=== PATIENT | male | born 1990 | race Caucasian/White ===

== ENCOUNTER 2024-08-08 11:39 | Emergency (ER) | payer OTHER, SELFPAY ==
[2024-08-08 11:41] VITALS: BP 143/82
[2024-08-08 12:41] VITALS: BMI 26.0
[2024-08-08 12:42] VITALS: BP 136/71
--- NOTE | 2024-08-08 12:56 | ED.GENMED ---
History of Present Illness
General
Chief Complaint: Flank Pain
Source: patient
Time Seen by Provider: 08/08/24 12:05
History of Present Illness
History of Present Illness:
Note:
CHIEF COMPLAINT(S)
Flank pain.
HISTORY OF PRESENT ILLNESS
The patient is a 34-year-old male presenting with left flank pain that began suddenly last night. The pain intensity was severe enough to hinder mobility and comfort in any position. The patient reported significant alleviation of pain after taking
ibuprofen around 11:30 AM today. At the time of evaluation, the patient describes the pain as currently resolved. There is an associated symptom of frequent urination, but no hematuria has been reported despite patient noting microscopic hematuria
on UA performed at prior to arrival. The patient denies any previous episodes of similar pain or urinary symptoms. Otherwise denies any fevers, chills, rigors, nausea, vomiting, bowel changes.
ADDITIONAL HISTORY OBTAINED FROM SOURCES OTHER THAN THE PATIENT
the patient underwent initial lab work at urgent care that showed normal kidney function and white blood cell count.
Past History
Past History
ED Past Medical History: Hypercholesterolemia
ED Past Surgical History: Other
Social History
Tobacco: Non-smoker
Alcohol: Occasional
Drug: None
Living: with family
Employment: Employed
Review of Systems
Review of Systems
All Other Systems: ROS reviewed and negative except as documented in HPI and ROS
Phy Exam
Physical Exam
Physical Exam:
GENERAL: Alert , in no apparent distress
EYE: clear conjunctiva b/l
HEAD: NCAT
ENT: o/p clr, mmm.
CARDIAC: Regular rate and rhythm .
LUNGS: Clear breath sounds bilaterally, no acute respiratory distress, no wheezes/rales/rhonchi
ABDOMEN: Soft, without focal tenderness, no r/g, no cvat
NEUROLOGICAL: Alert and oriented
SKIN: Warm and dry, skin intact.
MUSCULOSKELETAL: No edema, well perfused.
PSYCH: Normal and appropriate interaction.
Scores
Heart Failure Risk
Heart Failure Risk Score: Not Applicable
Heart Score for Chest Pain Patients
STEMI patient?: Not applicable
Withdrawal Assessment of Alcohol
Withdrawal Assessment Completed?: Not applicable
Course
Orders/Labs/Results
Orders:
Orders
08/08/24 12:39
CT Abd/pel Without Iv Or Oral Urgent
Comment:
Reason For Exam: left flank pain, micro hematuria
Vital Signs
Initial and Last Documented VS:
Initial Vital Signs
Temp Pulse Resp BP Pulse Ox
98.5 F 91 16 143/82 98
08/08/24 11:41 08/08/24 11:41 08/08/24 11:41 08/08/24 11:41 08/08/24 11:41
Last Documented Vital Signs
Temp Pulse Resp BP Pulse Ox
98.6 F 86 20 136/71 99
08/08/24 12:42 08/08/24 12:42 08/08/24 12:42 08/08/24 12:42 08/08/24 13:03
MDM/Problems Addressed
Differential Diagnosis Includes:
The Differential Diagnosis includes, in no particular order and is not limited to:
1. Nephrolithiasis (Kidney stone)
2. Pyelonephritis
3. Renal colic
4. Urinary tract infection
5. Musculoskeletal strain
6. Lower back pain
MDM/Problems Addressed:
The patients presentation is highly suggestive of a kidney stone. Further assessment will include imaging to determine the stones location. The patient will be provided with medication to manage pain symptoms at home should they recur. Outpatient
follow-up with urology is recommended for stone management and analysis if passed. A urine strainer will be given to the patient to capture the stone for possible further analysis. Patient had reassuring labs done at urgent care which showed no
leukocytosis and normal renal function
*Radiology
Radiology exam reviewed: radiology read reviewed
*Pulse Oximetry
SaO2: 99
Oxygen Mode of Delivery: Room air
Patient hypoxic: no
*Critical Care Note
Total Time (30-74mins, 75-104mins- exclusive of procedures): Not Applicable
Data Reviewed
Review of Other/Old Records Reveals: Labs
Patient Management
Escalation/DeEscalation of care consider admission/obs:
CT scan shows mild acute left hydroureteronephrosis due to a 2-1/2 mm obstructing calculus at the left UVJ. Patient continues to be comfortable and does not require any intravenous medications. Given his controlled pain, no lab abnormalities and
size of the stone I do think it is reasonable for outpatient management. Prescriptions for Flomax and Percocet were sent to pharmacy, continue use of NSAIDs as needed for pain as well. Information for urology was provided for outpatient care.
Patient was given a urinary strainer as well. He is aware of return precautions to the ER and stable for discharge home.
ED Attending Note
-
Portions of this chart may have been created with voice recognition software.� Occasional wrong word or��sound alike� substitutions may have occurred due to the inherent limitations of voice recognition software.
Discharge Plan
Departure
Patient Disposition: Home (Routine Discharge)
Date of Disposition: 08/08/24
Time of Disposition: 13:52
Patient with high blood pressure during this ER visit?: No
Discharge Problem:
Ureterolithiasis, Ureteral colic
Instructions: Kidney Stones (DC)
Prescriptions:
New
tamsulosin [Flomax] 0.4 mg capsule
0.4 mg PO DAILY Qty: 10 0RF
oxycodone-acetaminophen [Percocet] 5-325 mg tablet
1 tab PO Q6HPRN PRN (Reason: pain) Qty: 5 0RF
No Action
atorvastatin 10 mg Tablet
10 mg PO DAILY
Referrals:
Richar Rivera MD [Active, Urology]
Interventions
Interventions:
*Risk Screen - Suicide Last Done: 08/08/24 11:41
*General Assessment Last Done: 08/08/24 12:42
*Neglect/Abuse Screening Last Done: 08/08/24 11:41
*ED- Fall Risk Assessment Last Done: 08/08/24 12:42
*ED COVID-19 Vaccine History Last Done: 08/08/24 12:42
*Nursing Disposition Last Done: 08/08/24 14:04
BZ-Escpdp-Xyvfildfbs Assessment Last Done: 08/08/24 12:42
ED-Male Genitourinary Assessment Last Done: 08/08/24 12:42
Discharge Date and Time
Discharge Date/Time: 08/08/24 14:07
Print Language: PASHTO
== END 2024-08-08 14:07 | disposition home or self-care (01) ==
LOC: EMR 11:39
PROVIDERS: EMERGENCY PHYSICIAN Emergency Medicine; FAMILY PHYSICIAN Family Medicine
DX: N13.2 Hydronephrosis with renal and ureteral calculous obstruction (principal)
CPT/HCPCS: 99284; 74176